=== PATIENT | female | born 1970 | race Caucasian/White ===

== ENCOUNTER 2017-02-17 15:19 | Emergency (ER) | payer OTHER ==
[~2017-02-17] VITALS: Ht 157.4 cm; Wt 68.0 kg
[~2017-02-17 15:19] MED LIST: ALBUTEROL0.09 MG/A2 IH; AMOXICILLIN500 MG PO; ANAPROX DS550 MG PO; ATARAX25 MG PO; ATIVAN1 MG PO; CARAFATE1 GM PO; CYCLOBENZAPRINE10 MG PO; DARVOCET N 1001 TAB PO; DAYPRO600 M1 PO; FLEXERIL10 MG PO; HYDROCODONE BIT1 T11 PO; IBU-6600 MG PO; IBU800 MG PO; MEDROL DOSEPAK4 MG PO; MOTRIN800 MG PO; NAPROSYN500 MG PO; NKHM; PERCOCET 325 MG1 TA2 PO; PHENERGAN25 M1 PO; PREDNISONE50 MG PO; PROTONIX40 MG PO; SEPTRA DS 800 M1 TAB PO; TRAMADOL HCL50 MG PO; ULTRAM50 MG PO; ZITHROMAX Z PA250 MG PO
[2017-02-17 15:24] VITALS: BP 124/83
[2017-02-17] MEDS ORDERED: ROBAXIN500 M1 PO (15:25)
[2017-02-17] MEDS ORDERED: VOLTAREN50 M1 PO (15:27)
[2017-02-17] MEDS ORDERED: PREDNISONE10 MG PO (17:50)
== END 2017-02-17 18:00 | disposition home or self-care (01) ==
LOC: ED 15:19
DX: S43.402A Unspecified sprain of left shoulder joint, initial encounter (principal); S13.9XXA Sprain of joints and ligaments of unspecified parts of neck, initial encounter; Z88.6 Allergy status to analgesic agent; X58.XXXA Exposure to other specified factors, initial encounter; Y93.9 Activity, unspecified; Y92.9 Unspecified place or not applicable; Y99.9 Unspecified external cause status

== ENCOUNTER 2017-03-03 21:59 | Emergency (ER) | payer OTHER ==
[~2017-03-03] VITALS: Ht 157.4 cm; Wt 68.0 kg
[~2017-03-03 21:59] MED LIST changes: +PREDNISONE10 MG PO; +ROBAXIN500 M1 PO; +VOLTAREN50 M1 PO
[2017-03-03 22:07] VITALS: BP 123/79
[2017-03-03] MEDS ORDERED: BACLOFEN20 M1 PO (22:09)
== END 2017-03-03 23:47 | disposition home or self-care (01) ==
LOC: ED 21:59
DX: S39.012A Strain of muscle, fascia and tendon of lower back, initial encounter (principal); M62.838 Other muscle spasm; Z88.6 Allergy status to analgesic agent; X50.1XXA Overexertion from prolonged static or awkward postures, initial encounter; Y93.E1 Activity, personal bathing and showering; Y92.89 Other specified places as the place of occurrence of the external cause; Y99.8 Other external cause status

== ENCOUNTER 2017-08-29 14:20 | Emergency (ER) | payer OTHER ==
[~2017-08-29] VITALS: Ht 157.4 cm; Wt 63.5 kg
[~2017-08-29 14:20] MED LIST changes: +BACLOFEN20 M1 PO
[2017-08-29 14:27] VITALS: BP 127/96
[2017-08-29] MEDS ORDERED: CYCLOBENZAPRINE5 M3 PO (14:28)
[2017-08-29 15:00] LABS: BASO # 0.1 10*3/uL (0.0-0.1); BASO % 1.3 % (0.0-1.0); EOS # 0.2 10*3/uL (0.0-0.4); EOS % 3.8 % (1.0-4.0); HEMATOCRIT 39.9 % (37.0-47.0); HEMOGLOBIN 13.4 g/dl (12.0-16.0); LYMPH % 47.3 % (27.0-41.0); MEAN CELL VOLUME 85.8 fl (81.0-99.0); MEAN CORPUSCULAR HGB 28.8 pg (27.0-31.0); MEAN CORPUSCULAR HGB CONC 33.6 g/dl (33.0-37.0); MEAN PLATELET VOLUME 10.6 fl (9.6-12.3); MONO # 0.4 10*3/uL (0.1-1.0); MONO % 6.9 % (3.0-9.0); NEUT # 2.6 10*3/uL (2.3-7.9); NEUT % 40.5 % (47.0-73.0); PLATELET COUNT AUTOMATED 264 10*3/uL (130-400); RED BLOOD COUNT 4.65 10*6/uL (4.10-5.10); WHITE BLOOD COUNT 6.3 10*3/uL (4.8-10.8)
[2017-08-29 15:15] LABS: ALBUMIN 3.9 gm/dl (3.1-4.5); ALKALINE PHOSPHATASE 73 U/L (45-117); BUN 10 mg/dl (7-24); CHLORIDE 106 mmol/L (98-107); CREATININE 0.75 mg/dL (0.55-1.02); POTASSIUM 4.3 mmol/L (3.5-5.1); SGOT/AST 20 IU/L (3-35); SGPT/ALT 58 U/L (12-78); SODIUM 139 mmol/L (136-145); TOTAL PROTEIN 7.8 gm/dL (6.4-8.2)
[2017-08-29 15:17] LABS: TROPONIN I < 0.015 ng/ml (<0.045)
[2017-08-29] MEDS ORDERED: PREDNISONE50 MG PO (15:22)
== END 2017-08-29 15:59 | disposition home or self-care (01) ==
LOC: ED 14:20
PROVIDERS: Student in an Organized Health Care Education/Training Program
DX: M54.5 Low back pain (principal); G89.29 Other chronic pain; Z90.49 Acquired absence of other specified parts of digestive tract; Z88.6 Allergy status to analgesic agent

== ENCOUNTER → 2017-09-11 | Outpatient (CLI) | payer OTHER ==
[~2017-09-11] MED LIST changes: +CYCLOBENZAPRINE5 M3 PO
== END | disposition home or self-care (01) ==
LOC: MRI 13:00
DX: M51.36 Other intervertebral disc degeneration, lumbar region (principal); M51.37 Other intervertebral disc degeneration, lumbosacral region; M47.896 Other spondylosis, lumbar region; M25.78 Osteophyte, vertebrae; M54.41 Lumbago with sciatica, right side; R29.890 Loss of height; Z91.81 History of falling

== ENCOUNTER → 2017-10-15 | Outpatient (CLI) | payer OTHER | END | disposition home or self-care (01) | LOC: MAMMO 14:20 | DX: Z12.31 Encounter for screening mammogram for malignant neoplasm of breast (principal) ==

== ENCOUNTER 2017-11-21 14:51 | Inpatient (IN) | payer OTHER ==
[~2017-11-21] VITALS: Ht 157.5 cm; Wt 92.1 kg
[2017-11-21 14:51] VITALS: BP 114/66
[2017-11-21] MEDS ORDERED: NEURONTIN600 MG PO (15:06)
[2017-11-21] MEDS ORDERED: CYCLOBENZAPRINE10 MG PO (15:06)
[2017-11-21 15:13] LABS: BASO # 0.1 10*3/uL (0.0-0.1); BASO % 1.8 % (0.0-1.0); EOS # 0.3 10*3/uL (0.0-0.4); EOS % 5.5 % (1.0-4.0); HEMATOCRIT 39.7 % (37.0-47.0); HEMOGLOBIN 13.2 g/dl (12.0-16.0); LYMPH # 2.8 10*3/uL (1.3-4.4); LYMPH % 55.7 % (27.0-41.0); MEAN CELL VOLUME 86.1 fl (81.0-99.0); MEAN CORPUSCULAR HGB 28.6 pg (27.0-31.0); MEAN CORPUSCULAR HGB CONC 33.2 g/dl (33.0-37.0); MEAN PLATELET VOLUME 10.4 fl (9.6-12.3); MONO # 0.4 10*3/uL (0.1-1.0); MONO % 7.5 % (3.0-9.0); NEUT # 1.5 10*3/uL (2.3-7.9); NEUT % 29.3 % (47.0-73.0); PLATELET COUNT AUTOMATED 239 10*3/uL (130-400); RED BLOOD COUNT 4.61 10*6/uL (4.10-5.10); RED CELL DISTRI WIDTH 12.9 % (0-14.5); WHITE BLOOD COUNT 5.1 10*3/uL (4.8-10.8)
[2017-11-21 15:22] VITALS: BP 107/76
[2017-11-21 15:22] LABS: ACT PARTIAL THROMBO TIME 25.7 SECONDS (20.8-31.5); INTERNATIONAL NORM RATIO 0.9 (2.0-3.5)
[2017-11-21 15:30] LABS: ALKALINE PHOSPHATASE 73 U/L (45-117); BUN 10 mg/dl (7-24); CHLORIDE 105 mmol/L (98-107); CREATININE 0.87 mg/dL (0.55-1.02); POTASSIUM 3.5 mmol/L (3.5-5.1); SGOT/AST 21 IU/L (3-35); SGPT/ALT 47 U/L (12-78); SODIUM 139 mmol/L (136-145); TOTAL PROTEIN 7.5 gm/dL (6.4-8.2)
[2017-11-21 15:31] LABS: TROPONIN I < 0.015 ng/ml (<0.045)
[2017-11-21 15:59] VITALS: BP 98/63
[2017-11-21 16:40] VITALS: BP 103/67
[2017-11-21] MEDS ORDERED: CYMBALTA20 M1 PO (16:46)
[2017-11-21 20:00] VITALS: BP 117/76
[2017-11-22] VITALS: BP 135/44
[2017-11-22 06:11] LABS: BASO # 0.1 10*3/uL (0.0-0.1); BASO % 1.5 % (0.0-1.0); EOS # 0.3 10*3/uL (0.0-0.4); EOS % 5.4 % (1.0-4.0); HEMOGLOBIN 13.1 g/dl (12.0-16.0); LYMPH # 3.4 10*3/uL (1.3-4.4); LYMPH % 55.5 % (27.0-41.0); MEAN CELL VOLUME 88.9 fl (81.0-99.0); MEAN CORPUSCULAR HGB 28.4 pg (27.0-31.0); MONO # 0.5 10*3/uL (0.1-1.0); NEUT # 1.8 10*3/uL (2.3-7.9); NEUT % 29.4 % (47.0-73.0); PLATELET COUNT AUTOMATED 246 10*3/uL (130-400); RED BLOOD COUNT 4.61 10*6/uL (4.10-5.10); WHITE BLOOD COUNT 6.2 10*3/uL (4.8-10.8)
[2017-11-22 06:46] LABS: BUN 10 mg/dl (7-24); CHLORIDE 107 mmol/L (98-107); CHOLESTEROL 137 mg/dL (<200); CREATININE 0.82 mg/dL (0.55-1.02); PHOSPHOROUS 3.7 mg/dL (2.5-4.9); POTASSIUM 3.9 mmol/L (3.5-5.1); SODIUM 140 mmol/L (136-145); TRIGLYCERIDES 239 mg/dl (<150); VLDL CHOLESTEROL 48 mg/dL (6-40)
[2017-11-22 06:56] LABS: HDL CHOLESTEROL 26 mg/dl (40-60); LDL CHOLESTEROL 63 mg/dL (9-159)
[2017-11-22 07:12] LABS: VITAMIN D, 25-HYDROXY 20.9 ng/mL (30-100)
[2017-11-22 08:00] VITALS: BP 108/66
[2017-11-22 12:00] VITALS: BP 99/62
[2017-11-22] MEDS ORDERED: VITAMIN D-32000 UNIT PO (13:34)
== END 2017-11-22 15:00 | disposition home or self-care (01) | DRG 206 ==
LOC: ED 14:51 → 5E 15:47 → EDHOLD 15:47 → 5E 16:05
PROVIDERS: Internal Medicine; Nurse Practitioner Family
DX: M94.0 Chondrocostal junction syndrome [Tietze] (principal); E83.41 Hypermagnesemia; F33.9 Major depressive disorder, recurrent, unspecified; R00.0 Tachycardia, unspecified; R73.9 Hyperglycemia, unspecified; R07.82 Intercostal pain; E55.9 Vitamin D deficiency, unspecified; Z72.89 Other problems related to lifestyle; Z88.6 Allergy status to analgesic agent; Z90.49 Acquired absence of other specified parts of digestive tract; Z80.8 Family history of malignant neoplasm of other organs or systems; Z79.899 Other long term (current) drug therapy

== ENCOUNTER 2018-02-19 22:07 | Emergency (ER) | payer OTHER ==
[~2018-02-19] VITALS: Ht 157.4 cm; Wt 77.1 kg
[~2018-02-19 22:07] MED LIST changes: +CYMBALTA20 M1 PO; +NEURONTIN600 MG PO; +VITAMIN D-32000 UNIT PO
[2018-02-19 22:09] VITALS: BP 114/78
[2018-02-19] MEDS ORDERED: Motrin,Rufen800 MG PO (23:20)
== END 2018-02-19 23:26 | disposition home or self-care (01) ==
LOC: ED 22:07
DX: M77.9 Enthesopathy, unspecified (principal); Z88.6 Allergy status to analgesic agent

== ENCOUNTER 2018-05-11 19:57 | Emergency (ER) | payer OTHER ==
[~2018-05-11] VITALS: Ht 157.4 cm; Wt 72.6 kg
[~2018-05-11 19:57] MED LIST changes: +Motrin,Rufen800 MG PO
[2018-05-11 20:40] LABS: BASO # 0.1 10*3/uL (0.0-0.1); BASO % 0.9 % (0.0-1.0); EOS # 0.3 10*3/uL (0.0-0.4); EOS % 3.5 % (1.0-4.0); HEMATOCRIT 40.3 % (37.0-47.0); HEMOGLOBIN 13.2 g/dl (12.0-16.0); LYMPH # 3.3 10*3/uL (1.3-4.4); LYMPH % 42.3 % (27.0-41.0); MEAN CELL VOLUME 86.5 fl (81.0-99.0); MEAN CORPUSCULAR HGB 28.3 pg (27.0-31.0); MEAN CORPUSCULAR HGB CONC 32.8 g/dl (33.0-37.0); MEAN PLATELET VOLUME 10.8 fl (9.6-12.3); MONO # 0.5 10*3/uL (0.1-1.0); MONO % 6.2 % (3.0-9.0); NEUT # 3.6 10*3/uL (2.3-7.9); PLATELET COUNT AUTOMATED 269 10*3/uL (130-400); RED BLOOD COUNT 4.66 10*6/uL (4.10-5.10); RED CELL DISTRI WIDTH 13.2 % (0-14.5); WHITE BLOOD COUNT 7.8 10*3/uL (4.8-10.8)
[2018-05-11 20:48] LABS: BILIRUBIN NEGATIVE (NEGATIVE); BLOOD TRACE-INTACT (NEGATIVE); CLARITY CLEAR (CLEAR); COLOR YELLOW (YELLOW); GLUCOSE NEGATIVE (NEGATIVE); KETONE NEGATIVE (NEGATIVE); LEUKO ESTERASE NEGATIVE (NEGATIVE); NITRITE NEGATIVE (NEGATIVE); UROBILINOGEN 0.2 E.U./dl (0.2-1.0)
[2018-05-11 20:54] LABS: BACTERIA 1+
[2018-05-11 20:55] LABS: WBC 0-2 wbc/hpf (0-5)
[2018-05-11 20:55] LABS: ALBUMIN 3.9 gm/dl (3.1-4.5); ALKALINE PHOSPHATASE 75 U/L (45-117); BUN 12 mg/dl (7-24); CHLORIDE 103 mmol/L (98-107); CREATININE 0.89 mg/dL (0.55-1.02); POTASSIUM 3.9 mmol/L (3.5-5.1); SGOT/AST 24 IU/L (3-35); SGPT/ALT 58 U/L (12-78); SODIUM 139 mmol/L (136-145); TOTAL PROTEIN 7.7 gm/dL (6.4-8.2)
[2018-05-11 22:11] VITALS: BP 104/60
[2018-05-11] MEDS ORDERED: CVS TUSSIN CF118 M2 PO (22:27)
== END 2018-05-11 22:30 | disposition home or self-care (01) ==
LOC: ED 19:57
PROVIDERS: Nurse Practitioner
DX: B34.9 Viral infection, unspecified (principal); R53.81 Other malaise; Z88.6 Allergy status to analgesic agent

== ENCOUNTER 2018-06-03 17:03 | Emergency (ER) | payer OTHER ==
[~2018-06-03] VITALS: Ht 157.4 cm; Wt 77.1 kg
--- NOTE | ~2018-06-03 | EKG ---
[place], [place] ELECTROCARDIOGRAM REPORT NAME: ROSMERY HASTINGS UNIT #: [id number] ROOM: DOCTOR: EPIPHANY DRAFT REPORT BIRTHDATE: [birth year] [facility] Test Date: 2018-06-03 Test Time: 17:45:06 Pat Name: ROSMERY HASTINGS Department: ER Room: 13 Gender: F Shift Manager: EKG.AR : 1970 Requested By: NERY CABRERA PA-C Order Number: [id number] Reading MD: Ana Saucedo MD Measurements Intervals [place] Rate: 89 P: 20 [place]: 165 QRS: 18 QRSD: 84 T: 27 QT: 361 QTc: 440 Interpretive Statements Sinus rhythm Low voltage, precordial leads Electronically Signed On 06-07-2018 7:10:17 PST by Ana Saucedo MD CM:EKGRPT:ELECTROCARDIOGRAM REPORT [id number] NERY CABRERA PA-C EPIPHANY DRAFT REPORT NERY CABRERA PA-C
[~2018-06-03 17:03] MED LIST changes: +CVS TUSSIN CF118 M2 PO
[2018-06-03 17:04] VITALS: BP 115/71
[2018-06-03 17:51] LABS: BILIRUBIN NEGATIVE (NEGATIVE); BLOOD NEGATIVE (NEGATIVE); CLARITY CLEAR (CLEAR); COLOR YELLOW (YELLOW); GLUCOSE NEGATIVE (NEGATIVE); KETONE NEGATIVE (NEGATIVE); LEUKO ESTERASE NEGATIVE (NEGATIVE); NITRITE NEGATIVE (NEGATIVE); SPECIFIC GRAVITY <= 1.005 (1.005-1.030); UROBILINOGEN 0.2 E.U./dl (0.2-1.0)
[2018-06-03 17:54] LABS: BASO # 0.1 10*3/uL (0.0-0.1); BASO % 1.4 % (0.0-1.0); EOS # 0.3 10*3/uL (0.0-0.4); EOS % 3.8 % (1.0-4.0); HEMATOCRIT 42.6 % (37.0-47.0); LYMPH # 3.3 10*3/uL (1.3-4.4); LYMPH % 38.8 % (27.0-41.0); MEAN CELL VOLUME 86.4 fl (81.0-99.0); MEAN CORPUSCULAR HGB 28.4 pg (27.0-31.0); MEAN CORPUSCULAR HGB CONC 32.9 g/dl (33.0-37.0); MEAN PLATELET VOLUME 10.8 fl (9.6-12.3); MONO # 0.5 10*3/uL (0.1-1.0); MONO % 6.1 % (3.0-9.0); NEUT # 4.2 10*3/uL (2.3-7.9); NEUT % 49.8 % (47.0-73.0); PLATELET COUNT AUTOMATED 292 10*3/uL (130-400); RED BLOOD COUNT 4.93 10*6/uL (4.10-5.10); WHITE BLOOD COUNT 8.5 10*3/uL (4.8-10.8)
[2018-06-03 18:07] LABS: ALBUMIN 3.9 gm/dl (3.1-4.5); ALKALINE PHOSPHATASE 75 U/L (45-117); BUN 5 mg/dl (7-24); CHLORIDE 106 mmol/L (98-107); LIPASE 149 U/L (73-393); POTASSIUM 3.9 mmol/L (3.5-5.1); SGOT/AST 26 IU/L (3-35); SGPT/ALT 55 U/L (12-78); SODIUM 140 mmol/L (136-145)
[2018-06-03 18:09] LABS: BACTERIA 2+
[2018-06-03] MEDS ORDERED: TESSALON PERLE100 M1 PO (18:24)
[2018-06-03] MEDS ORDERED: ZOFRAN ODT4 MG SL (18:24)
== END 2018-06-03 18:40 | disposition home or self-care (01) ==
LOC: ED 17:03
PROVIDERS: Physician Assistant
DX: B34.9 Viral infection, unspecified (principal); R07.89 Other chest pain; Z88.6 Allergy status to analgesic agent

== ENCOUNTER 2018-06-22 13:48 | Emergency (ER) | payer OTHER ==
[~2018-06-22] VITALS: Ht 157.4 cm; Wt 68.0 kg
[~2018-06-22 13:48] MED LIST changes: +TESSALON PERLE100 M1 PO; +ZOFRAN ODT4 MG SL
== END 2018-06-22 15:25 | disposition home or self-care (01) ==
LOC: ED 13:48
DX: S81.812A Laceration without foreign body, left lower leg, initial encounter (principal); Z88.6 Allergy status to analgesic agent; Z79.899 Other long term (current) drug therapy; Z90.49 Acquired absence of other specified parts of digestive tract; W25.XXXA Contact with sharp glass, initial encounter; Y93.89 Activity, other specified; Y92.89 Other specified places as the place of occurrence of the external cause; Y99.8 Other external cause status

== ENCOUNTER 2018-08-09 23:05 | Emergency (ER) | payer OTHER ==
[~2018-08-09] VITALS: Ht 157.4 cm; Wt 72.6 kg
[2018-08-09] MEDS ORDERED: FLONASE ALLERG9.9 ML NAS (23:42)
[2018-08-10] MEDS ORDERED: AUGMENTIN 875-875 MG PO (00:15)
[2018-08-10 00:38] VITALS: BP 95/57
== END 2018-08-10 00:17 | disposition home or self-care (01) ==
LOC: ED 23:05
DX: J32.0 Chronic maxillary sinusitis (principal); M54.2 Cervicalgia; R11.10 Vomiting, unspecified; H53.149 Visual discomfort, unspecified; Z88.6 Allergy status to analgesic agent; Z79.899 Other long term (current) drug therapy; Z90.49 Acquired absence of other specified parts of digestive tract

== ENCOUNTER 2019-03-08 18:38 | Emergency (ER) | payer OTHER ==
[~2019-03-08] VITALS: Ht 157.4 cm; Wt 72.6 kg
[2019-03-08 18:38] VITALS: BP 113/76
[~2019-03-08 18:38] MED LIST changes: +AUGMENTIN 875-875 MG PO; +ESCITALOPRAM OX20 MG PO; +FLONASE ALLERG9.9 ML NAS; +MELOXICAM15 MG PO; +OMEPRAZOLE40 MG PO
[2019-03-08] MEDS ORDERED: ROBAXIN-750750 MG PO (20:34)
== END 2019-03-08 20:47 | disposition home or self-care (01) ==
LOC: ED 18:38
DX: S39.012A Strain of muscle, fascia and tendon of lower back, initial encounter (principal); S93.402A Sprain of unspecified ligament of left ankle, initial encounter; Z88.6 Allergy status to analgesic agent; Z79.899 Other long term (current) drug therapy; Z90.49 Acquired absence of other specified parts of digestive tract; W01.0XXA Fall on same level from slipping, tripping and stumbling without subsequent striking against object, initial encounter; Y93.01 Activity, walking, marching and hiking; Y92.512 Supermarket, store or market as the place of occurrence of the external cause; Y99.8 Other external cause status

== ENCOUNTER 2019-06-21 18:54 | Emergency (ER) | payer OTHER ==
[~2019-06-21] VITALS: Ht 157.4 cm; Wt 68.0 kg
[2019-06-21 18:54] VITALS: BP 126/76
[~2019-06-21 18:54] MED LIST changes: +ROBAXIN-750750 MG PO
[2019-06-21] MEDS ORDERED: MEDROL DOSEPAK4 MG PO (21:41)
[2019-06-21] MEDS ORDERED: CYCLOBENZAPRINE10 MG PO (21:46)
== END 2019-06-21 22:05 | disposition home or self-care (01) ==
LOC: ED 18:54
DX: M51.36 Other intervertebral disc degeneration, lumbar region (principal); M54.41 Lumbago with sciatica, right side; M54.6 Pain in thoracic spine; Z88.6 Allergy status to analgesic agent

== ENCOUNTER → 2019-08-15 | Outpatient (CLI) | payer OTHER ==
[2019-08-15 15:14] LABS: ALBUMIN 3.9 gm/dl (3.1-4.5); ALKALINE PHOSPHATASE 74 U/L (45-117); BILIRUBIN, DIRECT < 0.1 mg/dL (0.0-0.2); CHOLESTEROL 131 mg/dL (<200); GAMMA GLUTAMYL TRANSPEPTIDASE 25 U/L (5-55); HDL CHOLESTEROL 26 mg/dl (40-60); LDL CHOLESTEROL 48 mg/dL (9-159); SGOT/AST 17 IU/L (3-35); SGPT/ALT 44 U/L (12-78); TOTAL PROTEIN 7.3 gm/dL (6.4-8.2); TRIGLYCERIDES 284 mg/dl (<150); URIC ACID 6.1 mg/dL (2.6-6.0); VLDL CHOLESTEROL 57 mg/dL (6-40)
[2019-08-16 09:03] LABS: AFP TUMOR MARKER 002253 3.7 ng/mL (0.0-8.3); HEPATITIS B SURFACE AG Negative (Negative); HEPATITIS C VIRUS ANTIBODY <0.1 s/co (0.0-0.9)
== END | disposition home or self-care (01) ==
LOC: LAB 14:23
PROVIDERS: Family Medicine
DX: E78.5 Hyperlipidemia, unspecified (principal); R53.83 Other fatigue; R74.8 Abnormal levels of other serum enzymes; E55.9 Vitamin D deficiency, unspecified; R79.89 Other specified abnormal findings of blood chemistry

== ENCOUNTER 2020-03-18 12:20 | Emergency (ER) | payer OTHER ==
[~2020-03-18] VITALS: Ht 157.4 cm; Wt 77.1 kg
[2020-03-18 12:28] VITALS: BP 121/72
[2020-03-18] MEDS ORDERED: ROBAXIN-750750 MG PO (13:41)
[2020-03-18] MEDS ORDERED: PREDNISONE20 M1 PO (13:41)
== END 2020-03-18 13:46 | disposition home or self-care (01) ==
LOC: ED 12:20
DX: M54.42 Lumbago with sciatica, left side (principal)

== ENCOUNTER 2020-06-28 14:58 | Emergency (ER) | payer OTHER ==
[~2020-06-28] VITALS: Ht 157.4 cm; Wt 76.2 kg
[~2020-06-28 14:58] MED LIST changes: +PREDNISONE20 M1 PO
[2020-06-28 15:11] VITALS: BP 127/74
[2020-06-28] MEDS ORDERED: NAPROSYN500 MG PO (18:45)
== END 2020-06-28 18:49 | disposition home or self-care (01) ==
LOC: ED 14:58
DX: M79.602 Pain in left arm (principal); M79.642 Pain in left hand; Z79.899 Other long term (current) drug therapy

== ENCOUNTER 2021-02-26 17:58 | Emergency (ER) | payer OTHER ==
[~2021-02-26] VITALS: Ht 157.4 cm; Wt 72.6 kg
[2021-02-26 18:07] VITALS: BP 126/71
[2021-02-26] MEDS ORDERED: NAPROSYN500 MG PO (21:15)
[2021-02-26] MEDS ORDERED: HYDROCODONE-AC1 EAC1 PO ×2 (21:15→21:16)
[2021-02-26] MEDS ORDERED: CYCLOBENZAPRINE10 MG PO (21:15)
== END 2021-02-26 21:24 | disposition home or self-care (01) ==
LOC: ED 17:58
DX: M54.41 Lumbago with sciatica, right side (principal); Z79.899 Other long term (current) drug therapy; Z90.49 Acquired absence of other specified parts of digestive tract

== ENCOUNTER → 2021-03-19 | Outpatient (CLI) | payer OTHER ==
[~2021-03-19] MED LIST changes: +HYDROCODONE-AC1 EAC1 PO
== END | disposition home or self-care (01) ==
LOC: MAMMO 15:00 → LAB 16:01
PROVIDERS: ATTEND Family Medicine
DX: Z12.31 Encounter for screening mammogram for malignant neoplasm of breast (principal); R79.89 Other specified abnormal findings of blood chemistry; R53.83 Other fatigue; E78.5 Hyperlipidemia, unspecified; E55.9 Vitamin D deficiency, unspecified

== ENCOUNTER → 2021-03-20 | Outpatient (CLI) | payer OTHER ==
[2021-03-20 14:40] LABS: BASO # 0.1 10*3/uL (0.0-0.1); BASO % 1.4 % (0.0-1.0); EOS # 0.2 10*3/uL (0.0-0.4); EOS % 3.6 % (1.0-4.0); HEMATOCRIT 40.5 % (37.0-47.0); LYMPH # 2.9 10*3/uL (1.3-4.4); LYMPH % 43.6 % (27.0-41.0); MEAN CELL VOLUME 83.3 fl (81.0-99.0); MEAN CORPUSCULAR HGB 28.6 pg (27.0-31.0); MEAN CORPUSCULAR HGB CONC 34.3 g/dl (33.0-37.0); MEAN PLATELET VOLUME 10.3 fl (9.6-12.3); MONO # 0.4 10*3/uL (0.1-1.0); MONO % 6.1 % (3.0-9.0); NEUT % 45.1 % (47.0-73.0); PLATELET COUNT AUTOMATED 340 10*3/uL (130-400); RED BLOOD COUNT 4.86 10*6/uL (4.10-5.10); RETICULOCYTE % 2.12 % (0.50-2.50); WHITE BLOOD COUNT 6.6 10*3/uL (4.8-10.8)
[2021-03-20 14:57] LABS: ALBUMIN 4.1 gm/dl (3.1-4.5); ALKALINE PHOSPHATASE 79 U/L (45-117); BUN 11 mg/dl (7-24); CHLORIDE 108 mmol/L (98-107); CHOLESTEROL 147 mg/dL (<200); CREATININE 0.81 mg/dL (0.55-1.02); GAMMA GLUTAMYL TRANSPEPTIDASE 45 U/L (5-55); IRON 52 ug/dL (50-170); LDL CHOLESTEROL 57 mg/dL (9-159); POTASSIUM 3.9 mmol/L (3.5-5.1); SGOT/AST 16 IU/L (3-35); SGPT/ALT 51 U/L (12-78); SODIUM 140 mmol/L (136-145); TOTAL IRON BINDING CAPACITY 343 ug/dl (250-450); TOTAL PROTEIN 7.9 gm/dL (6.4-8.2); TRIGLYCERIDES 325 mg/dl (<150)
[2021-03-20 15:05] LABS: BILIRUBIN Negative (Negative); BLOOD 2+ (Negative); CLARITY Clear (Clear); COLOR Yellow (Yellow); GLUCOSE Negative (Negative); KETONE Trace (Negative); LEUKO ESTERASE Trace (Negative); NITRITE Negative (Negative); PH 5.5 (4.5-8.0); SPECIFIC GRAVITY 1.025 (1.001-1.030)
[2021-03-20 15:23] LABS: FERRITIN 53.1 ng/mL (10.0-291.0)
[2021-03-20 15:38] LABS: BACTERIA TRACE
== END | disposition home or self-care (01) ==
LOC: MRI 00:15
PROVIDERS: Family Medicine; ATTEND Student in an Organized Health Care Education/Training Program
DX: M51.16 Intervertebral disc disorders with radiculopathy, lumbar region (principal); M47.816 Spondylosis without myelopathy or radiculopathy, lumbar region; M51.26 Other intervertebral disc displacement, lumbar region

== ENCOUNTER 2021-10-08 20:06 | Emergency (ER) | payer OTHER ==
[~2021-10-08] VITALS: Ht 157.4 cm; Wt 72.6 kg
[2021-10-08 20:11] VITALS: BP 125/74
[2021-10-08 20:43] LABS: BASO # 0.1 10*3/uL (0.0-0.1); BASO % 1.3 % (0.0-1.0); EOS # 0.3 10*3/uL (0.0-0.4); EOS % 4.2 % (1.0-4.0); HEMATOCRIT 40.3 % (37.0-47.0); LYMPH # 3.5 10*3/uL (1.3-4.4); LYMPH % 49.2 % (27.0-41.0); MEAN CELL VOLUME 84.5 fl (81.0-99.0); MEAN CORPUSCULAR HGB 27.9 pg (27.0-31.0); MEAN PLATELET VOLUME 10.3 fl (9.6-12.3); MONO # 0.5 10*3/uL (0.1-1.0); NEUT # 2.7 10*3/uL (2.3-7.9); NEUT % 38.2 % (47.0-73.0); PLATELET COUNT AUTOMATED 315 10*3/uL (130-400); RED BLOOD COUNT 4.77 10*6/uL (4.10-5.10); RED CELL DISTRI WIDTH 12.2 % (0-14.5); WHITE BLOOD COUNT 7.1 10*3/uL (4.8-10.8)
[2021-10-08 20:43] LABS: BILIRUBIN Negative (Negative); BLOOD Negative (Negative); CLARITY Cloudy (Clear); COLOR Yellow (Yellow); GLUCOSE Negative (Negative); KETONE Negative (Negative); LEUKO ESTERASE Negative (Negative); NITRITE Negative (Negative); SPECIFIC GRAVITY 1.025 (1.001-1.030)
[2021-10-08 21:00] LABS: BACTERIA 3+
[2021-10-08 21:13] LABS: ALKALINE PHOSPHATASE 100 U/L (45-117); BUN 14 mg/dl (7-24); CHLORIDE 107 mmol/L (98-107); CREATININE 0.81 mg/dL (0.55-1.02); LIPASE 194 U/L (73-393); POTASSIUM 4.1 mmol/L (3.5-5.1); SGOT/AST 34 IU/L (3-35); SGPT/ALT 75 U/L (12-78); SODIUM 142 mmol/L (136-145); TOTAL PROTEIN 7.5 gm/dL (6.4-8.2)
[2021-10-08] MEDS ORDERED: ZOFRAN4 MG PO (21:40)
[2021-10-08] MEDS ORDERED: PEPCID20 MG PO (21:40)
== END 2021-10-08 21:42 | disposition home or self-care (01) ==
LOC: ED 20:06
PROVIDERS: Physician Assistant
DX: R10.9 Unspecified abdominal pain (principal); R11.2 Nausea with vomiting, unspecified; Z90.49 Acquired absence of other specified parts of digestive tract

== ENCOUNTER → 2022-02-19 | Outpatient (CLI) | payer OTHER ==
[~2022-02-19] MED LIST changes: +PEPCID20 MG PO; +ZOFRAN4 MG PO
[2022-02-19 16:32] LABS: BASO # 0.1 10*3/uL (0.0-0.1); BASO % 1.7 % (0.0-1.0); EOS # 0.3 10*3/uL (0.0-0.4); EOS % 4.5 % (1.0-4.0); HEMATOCRIT 41.9 % (37.0-47.0); LYMPH # 2.8 10*3/uL (1.3-4.4); LYMPH % 47.1 % (27.0-41.0); MEAN CORPUSCULAR HGB 27.5 pg (27.0-31.0); MEAN CORPUSCULAR HGB CONC 32.7 g/dl (33.0-37.0); MEAN PLATELET VOLUME 10.6 fl (9.6-12.3); MONO # 0.4 10*3/uL (0.1-1.0); NEUT # 2.4 10*3/uL (2.3-7.9); NEUT % 39.4 % (47.0-73.0); PLATELET COUNT AUTOMATED 297 10*3/uL (130-400); RED BLOOD COUNT 4.99 10*6/uL (4.10-5.10); RED CELL DISTRI WIDTH 12.6 % (0-14.5); RETICULOCYTE % 1.98 % (0.50-2.50)
[2022-02-19 16:34] LABS: BILIRUBIN Negative (Negative); BLOOD Negative (Negative); CLARITY Clear (Clear); COLOR Yellow (Yellow); GLUCOSE Negative (Negative); KETONE Negative (Negative); LEUKO ESTERASE Negative (Negative); NITRITE Negative (Negative)
[2022-02-19 16:49] LABS: ALKALINE PHOSPHATASE 91 U/L (45-117); BUN 11 mg/dl (7-24); CHLORIDE 109 mmol/L (98-107); CHOLESTEROL 160 mg/dL (<200); CREATININE 0.99 mg/dL (0.55-1.02); GAMMA GLUTAMYL TRANSPEPTIDASE 37 U/L (5-55); IRON 53 ug/dL (50-170); LDL CHOLESTEROL 55 mg/dL (9-159); SGOT/AST 18 IU/L (3-35); SGPT/ALT 41 U/L (12-78); SODIUM 140 mmol/L (136-145); T3 UPTAKE 33 % (31-39); THYROXINE (T4) TOTAL 12.7 ug/dl (4.8-13.9); TOTAL PROTEIN 7.6 gm/dL (6.4-8.2); TRIGLYCERIDES 382 mg/dl (<150)
[2022-02-19 16:53] LABS: BACTERIA 2+; WBC 0-2 wbc/hpf (0-5)
[2022-02-19 16:57] LABS: B-hCG (QUALITATIVE) NEGATIVE (NEGATIVE)
[2022-02-19 16:59] LABS: BETA-HCG, QUANT < 1.0 mIU/mL (1-3)
[2022-02-20 08:08] LABS: DHEA SULFATE 60.7 ug/dL (41.2-243.7); FOLLICLE STIMULATING HORMONE 47.2 mIU/mL (.); LUTEINIZING HORMONE 29.7 mIU/mL (.); PROGESTERONE 0.1 ng/mL (.); PROLACTIN 13.6 ng/mL (4.8-23.3); SEX HORMONE BINDING GLOBULIN 30.6 nmol/L (24.6-122.0)
[2022-02-23 00:05] LABS: TESTOSTERONE FREE, (DIRECT) 0.7 pg/mL (0.0-4.2)
== END | disposition home or self-care (01) ==
LOC: LAB 15:54
PROVIDERS: ATTEND Family Medicine
DX: E78.5 Hyperlipidemia, unspecified (principal); R79.89 Other specified abnormal findings of blood chemistry; R53.83 Other fatigue; R74.8 Abnormal levels of other serum enzymes

== ENCOUNTER → 2022-03-07 | Outpatient (CLI) | payer OTHER | END | disposition home or self-care (01) | LOC: US 00:58 | PROVIDERS: ATTEND Family Medicine | DX: K76.0 Fatty (change of) liver, not elsewhere classified (principal); R10.84 Generalized abdominal pain; R10.2 Pelvic and perineal pain ==

== ENCOUNTER 2022-03-15 16:35 | Emergency (ER) | payer OTHER ==
[~2022-03-15] VITALS: Ht 157.4 cm; Wt 72.1 kg
[2022-03-15 16:43] VITALS: BP 110/68
[2022-03-15] MEDS ORDERED: IBUPROFEN600 MG PO (18:53)
== END 2022-03-15 19:16 | disposition home or self-care (01) ==
LOC: ED 16:35
DX: S60.221A Contusion of right hand, initial encounter (principal); Z90.49 Acquired absence of other specified parts of digestive tract; Z90.89 Acquired absence of other organs; W22.01XA Walked into wall, initial encounter; Y93.89 Activity, other specified; Y92.89 Other specified places as the place of occurrence of the external cause; Y99.8 Other external cause status

== ENCOUNTER 2022-08-14 17:14 | Emergency (ER) | payer OTHER ==
[~2022-08-14] VITALS: Wt 78.5 kg
[~2022-08-14 17:14] MED LIST changes: +IBUPROFEN600 MG PO
[2022-08-14 17:42] VITALS: BP 122/72
[2022-08-14] MEDS ORDERED: NAPROSYN500 MG PO (20:23)
== END 2022-08-14 20:36 | disposition home or self-care (01) ==
LOC: ED 17:14
DX: S83.91XA Sprain of unspecified site of right knee, initial encounter (principal); Z90.89 Acquired absence of other organs; Z90.49 Acquired absence of other specified parts of digestive tract; X58.XXXA Exposure to other specified factors, initial encounter; Y93.89 Activity, other specified; Y92.89 Other specified places as the place of occurrence of the external cause; Y99.8 Other external cause status

== ENCOUNTER 2022-10-29 17:57 | Emergency (ER) | payer OTHER ==
[~2022-10-29] VITALS: Ht 157.4 cm; Wt 77.1 kg
[2022-10-29 18:01] VITALS: BP 118/64
== END 2022-10-29 20:20 | disposition left against medical advice (07) ==
LOC: ED 17:57
DX: M25.561 Pain in right knee (principal); Z53.21 Procedure and treatment not carried out due to patient leaving prior to being seen by health care provider

== ENCOUNTER 2022-11-03 16:46 | Emergency (ER) | payer OTHER ==
[~2022-11-03] VITALS: Ht 157.4 cm; Wt 72.6 kg
[2022-11-03 17:12] VITALS: BP 107/72
== END 2022-11-03 19:43 | disposition home or self-care (01) ==
LOC: ED 16:46
DX: S76.911A Strain of unspecified muscles, fascia and tendons at thigh level, right thigh, initial encounter (principal); S80.01XA Contusion of right knee, initial encounter; F32.A Depression, unspecified; I95.9 Hypotension, unspecified; Z90.89 Acquired absence of other organs; Z90.49 Acquired absence of other specified parts of digestive tract; Z98.890 Other specified postprocedural states; W50.1XXA Accidental kick by another person, initial encounter; Y93.89 Activity, other specified; Y92.89 Other specified places as the place of occurrence of the external cause; Y99.8 Other external cause status

== ENCOUNTER → 2022-11-05 | Outpatient (CLI) | payer OTHER ==
[2022-11-05 13:15] LABS: BASO # 0.1 10*3/uL (0.0-0.1); BASO % 1.4 % (0.0-1.0); EOS # 0.2 10*3/uL (0.0-0.4); EOS % 4.1 % (1.0-4.0); HEMATOCRIT 40.8 % (37.0-47.0); LYMPH % 39.5 % (27.0-41.0); MEAN CELL VOLUME 85.7 fl (81.0-99.0); MEAN CORPUSCULAR HGB 28.2 pg (27.0-31.0); MEAN CORPUSCULAR HGB CONC 32.8 g/dl (33.0-37.0); MEAN PLATELET VOLUME 11.2 fl (9.6-12.3); MONO # 0.4 10*3/uL (0.1-1.0); MONO % 7.4 % (3.0-9.0); NEUT # 2.4 10*3/uL (2.3-7.9); NEUT % 47.4 % (47.0-73.0); PLATELET COUNT AUTOMATED 262 10*3/uL (130-400); RED BLOOD COUNT 4.76 10*6/uL (4.10-5.10); RED CELL DISTRI WIDTH 12.9 % (0-14.5); RETICULOCYTE % 1.91 % (0.50-2.50); WHITE BLOOD COUNT 5.1 10*3/uL (4.8-10.8)
[2022-11-05 13:30] LABS: BILIRUBIN Negative (Negative); BLOOD Negative (Negative); CLARITY Clear (Clear); COLOR Yellow (Yellow); GLUCOSE Negative (Negative); KETONE Negative (Negative); LEUKO ESTERASE 1+ (Negative); NITRITE Negative (Negative); SPECIFIC GRAVITY 1.025 (1.001-1.030)
[2022-11-05 13:44] LABS: EPITHELIAL CELLS 16-20; RBC 0-2 rbc/hpf (0-2)
[2022-11-05 13:56] LABS: ALKALINE PHOSPHATASE 76 U/L (46-116); BUN 10 mg/dl (9-23); CHLORIDE 108 mmol/L (98-107); CHOLESTEROL 151 mg/dL (<200); GAMMA GLUTAMYL TRANSPEPTIDASE 36 U/L (0-73); LDL CHOLESTEROL 58 mg/dL (9-159); POTASSIUM 4.1 mmol/L (3.4-5.1); SGPT/ALT 47 U/L (10-49); T3 UPTAKE 18.5 % (22.4-36.7); THYROXINE (T4) TOTAL 10.4 ug/dl (4.5-10.9); TOTAL PROTEIN 7.2 gm/dL (6.0-8.0); TRIGLYCERIDES 306 mg/dl (<150); URIC ACID 6.4 mg/dL (3.1-7.8)
[2022-11-05 15:39] LABS: VITAMIN D, 25-HYDROXY 21.2 ng/mL (30-100)
[2022-11-06 13:07] LABS: ANTI-DSDNA ANTIBODIES <1 IU/mL (0-9)
== END | disposition home or self-care (01) ==
LOC: LAB 12:52
PROVIDERS: ATTEND Family Medicine
DX: E78.5 Hyperlipidemia, unspecified (principal); R79.89 Other specified abnormal findings of blood chemistry; R53.83 Other fatigue; R74.8 Abnormal levels of other serum enzymes; E55.9 Vitamin D deficiency, unspecified

== ENCOUNTER → 2022-11-20 | Outpatient (CLI) | payer OTHER | END | disposition home or self-care (01) | LOC: MRI 10:43 | PROVIDERS: ATTEND Family Medicine | DX: S83.241D Other tear of medial meniscus, current injury, right knee, subsequent encounter (principal); S83.401D Sprain of unspecified collateral ligament of right knee, subsequent encounter; M25.461 Effusion, right knee; M71.21 Synovial cyst of popliteal space [Baker], right knee; R60.0 Localized edema; X58.XXXD Exposure to other specified factors, subsequent encounter ==

== ENCOUNTER 2023-01-14 17:03 | Emergency (ER) | payer OTHER ==
[~2023-01-14] VITALS: Wt 76.7 kg
[2023-01-14 17:34] VITALS: BP 120/52
[2023-01-14] MEDS ORDERED: Motrin,Rufen800 MG PO (18:04)
[2023-01-14] MEDS ORDERED: HYDROCODONE-AC1 EAC1 PO (18:04)
== END 2023-01-14 18:29 | disposition home or self-care (01) ==
LOC: ED 17:03
DX: S89.91XA Unspecified injury of right lower leg, initial encounter (principal); F32.A Depression, unspecified; I95.9 Hypotension, unspecified; Z90.89 Acquired absence of other organs; Z90.49 Acquired absence of other specified parts of digestive tract; X58.XXXA Exposure to other specified factors, initial encounter; Y93.89 Activity, other specified; Y92.89 Other specified places as the place of occurrence of the external cause; Y99.8 Other external cause status

== ENCOUNTER → 2023-03-26 | Day surgery (SDC) | payer OTHER ==
[2023-03-23 12:46] VITALS: BP 123/73
[2023-03-23 13:36] LABS: BUN 8 mg/dl (9-23); CHLORIDE 106 mmol/L (98-107); POTASSIUM 4.1 mmol/L (3.4-5.1)
[~2023-03-26] VITALS: Ht 157.4 cm; Wt 76.7 kg
[2023-03-26 08:15] VITALS: BP 112/63
[2023-03-26 10:10] VITALS: BP 116/59
[2023-03-26 10:25] VITALS: BP 111/66
[2023-03-26 10:40] VITALS: BP 113/70
[2023-03-26 10:55] VITALS: BP 109/73
[2023-03-26 11:07] VITALS: BP 116/68
== END ==
LOC: SDC 03-23 13:15
PROVIDERS: ATTEND Orthopaedic Surgery
DX: S83.241A Other tear of medial meniscus, current injury, right knee, initial encounter (principal); M17.11 Unilateral primary osteoarthritis, right knee; G43.909 Migraine, unspecified, not intractable, without status migrainosus; Z90.49 Acquired absence of other specified parts of digestive tract; Z90.89 Acquired absence of other organs; X58.XXXA Exposure to other specified factors, initial encounter; Y92.89 Other specified places as the place of occurrence of the external cause; Y93.89 Activity, other specified; Y99.8 Other external cause status

== ENCOUNTER 2023-04-28 11:44 | Emergency (ER) | payer OTHER ==
[~2023-04-28] VITALS: Ht 157.4 cm; Wt 72.6 kg
[2023-04-28 12:18] LABS: BASO # 0.1 10*3/uL (0.0-0.1); BASO % 0.9 % (0.0-1.0); EOS # 0.3 10*3/uL (0.0-0.4); EOS % 3.9 % (1.0-4.0); HEMATOCRIT 40.8 % (37.0-47.0); LYMPH # 2.6 10*3/uL (1.3-4.4); LYMPH % 41.1 % (27.0-41.0); MEAN CELL VOLUME 84.6 fl (81.0-99.0); MEAN CORPUSCULAR HGB CONC 33.1 g/dl (33.0-37.0); MEAN PLATELET VOLUME 10.9 fl (9.6-12.3); MONO # 0.5 10*3/uL (0.1-1.0); MONO % 7.4 % (3.0-9.0); NEUT % 46.5 % (47.0-73.0); PLATELET COUNT AUTOMATED 302 10*3/uL (130-400); RED BLOOD COUNT 4.82 10*6/uL (4.10-5.10); RED CELL DISTRI WIDTH 12.7 % (0-14.5); WHITE BLOOD COUNT 6.4 10*3/uL (4.8-10.8)
[2023-04-28 12:30] LABS: ACT PARTIAL THROMBO TIME 29.4 SECONDS (20.0-32.1)
[2023-04-28 12:41] LABS: ALKALINE PHOSPHATASE 82 U/L (46-116); BUN 13 mg/dl (9-23); CHLORIDE 107 mmol/L (98-107); SGPT/ALT 29 U/L (10-49); TOTAL PROTEIN 7.4 gm/dL (6.0-8.0)
[2023-04-28 13:34] VITALS: BP 99/66
== END 2023-04-28 15:03 | disposition home or self-care (01) ==
LOC: ED 11:44
PROVIDERS: Nurse Practitioner Family
DX: R07.89 Other chest pain (principal); F41.9 Anxiety disorder, unspecified; F32.A Depression, unspecified; R73.9 Hyperglycemia, unspecified; E83.41 Hypermagnesemia; Z90.89 Acquired absence of other organs; Z98.890 Other specified postprocedural states; Z90.49 Acquired absence of other specified parts of digestive tract

== ENCOUNTER 2023-06-14 17:23 | Emergency (ER) | payer OTHER ==
[~2023-06-14] VITALS: Ht 157.4 cm; Wt 77.6 kg
[2023-06-14 17:35] VITALS: BP 117/59
[2023-06-14 18:00] LABS: BASO # 0.1 10*3/uL (0.0-0.1); BASO % 1.1 % (0.0-1.0); EOS # 0.2 10*3/uL (0.0-0.4); EOS % 3.5 % (1.0-4.0); HEMATOCRIT 39.1 % (37.0-47.0); LYMPH # 2.2 10*3/uL (1.3-4.4); LYMPH % 40.6 % (27.0-41.0); MEAN CELL VOLUME 85.2 fl (81.0-99.0); MEAN CORPUSCULAR HGB 28.3 pg (27.0-31.0); MEAN CORPUSCULAR HGB CONC 33.2 g/dl (33.0-37.0); MEAN PLATELET VOLUME 10.5 fl (9.6-12.3); MONO # 0.5 10*3/uL (0.1-1.0); MONO % 8.4 % (3.0-9.0); NEUT # 2.5 10*3/uL (2.3-7.9); NEUT % 46.2 % (47.0-73.0); PLATELET COUNT AUTOMATED 265 10*3/uL (130-400); RED BLOOD COUNT 4.59 10*6/uL (4.10-5.10); RED CELL DISTRI WIDTH 12.8 % (0-14.5); WHITE BLOOD COUNT 5.4 10*3/uL (4.8-10.8)
[2023-06-14 18:21] LABS: ALKALINE PHOSPHATASE 85 U/L (46-116); BUN 12 mg/dl (9-23); CHLORIDE 109 mmol/L (98-107); SGPT/ALT 28 U/L (5-49); TOTAL PROTEIN 6.9 gm/dL (6.0-8.0)
== END 2023-06-14 21:21 | disposition home or self-care (01) ==
LOC: ED 17:23
PROVIDERS: Nurse Practitioner
DX: M54.50 Low back pain, unspecified (principal); N93.9 Abnormal uterine and vaginal bleeding, unspecified; F32.A Depression, unspecified; I95.9 Hypotension, unspecified; Z90.49 Acquired absence of other specified parts of digestive tract; Z90.89 Acquired absence of other organs; Z98.890 Other specified postprocedural states

== ENCOUNTER → 2023-08-13 | Outpatient (CLI) | payer OTHER | END | disposition home or self-care (01) | LOC: MRI 08-04 01:11 | PROVIDERS: ATTEND Internal Medicine | DX: M43.07 Spondylolysis, lumbosacral region (principal); M51.27 Other intervertebral disc displacement, lumbosacral region; M48.07 Spinal stenosis, lumbosacral region ==

== ENCOUNTER → 2023-09-04 | Emergency (ER) | payer OTHER ==
[~2023-09-04] VITALS: Ht 157.4 cm; Wt 77.6 kg
[~2023-09-04] MED LIST changes: +CIPRO500 MG PO; +IOHEXOL 300 MG/ML 100 ML VIAL IV ONE; +SODIUM CHLORIDE 0.9% 1,000 ML IV ONE
[2023-09-04 13:31] VITALS: BP 121/68
[2023-09-04 15:06] LABS: BILIRUBIN Negative (Negative); BLOOD 1+ (Negative); CLARITY Clear (Clear); COLOR Yellow (Yellow); GLUCOSE Negative (Negative); KETONE Negative (Negative); LEUKO ESTERASE Negative (Negative); NITRITE Negative (Negative); PH 5.5 (4.5-8.0); UROBILINOGEN 0.2 E.U./dl (0.0-1.0)
[2023-09-04 15:13] LABS: EOS # 0.2 10*3/uL (0.0-0.4); EOS % 4.7 % (1.0-4.0); HEMATOCRIT 39.3 % (37.0-47.0); LYMPH # 2.2 10*3/uL (1.3-4.4); LYMPH % 57.1 % (27.0-41.0); MEAN CELL VOLUME 85.8 fl (81.0-99.0); MEAN CORPUSCULAR HGB 27.1 pg (27.0-31.0); MEAN CORPUSCULAR HGB CONC 31.6 g/dl (33.0-37.0); MEAN PLATELET VOLUME 10.3 fl (9.6-12.3); MONO # 0.3 10*3/uL (0.1-1.0); MONO % 6.5 % (3.0-9.0); NEUT # 1.2 10*3/uL (2.3-7.9); NEUT % 30.7 % (47.0-73.0); PLATELET COUNT AUTOMATED 261 10*3/uL (130-400); RED BLOOD COUNT 4.58 10*6/uL (4.10-5.10); RED CELL DISTRI WIDTH 12.8 % (0-14.5); WHITE BLOOD COUNT 3.9 10*3/uL (4.8-10.8)
[2023-09-04 15:13] LABS: URINE AMPHETAMINES Negative (1000ng/ml); URINE BARBITURATES Negative (200ng/ml); URINE BENZODIAZEPINES Negative (200ng/ml); URINE CANNABINOIDS (THC) Negative (50ng/ml); URINE COCAINE Negative (300ng/ml); URINE METHADONE Negative (300ng/ml); URINE OPIATES Negative (300ng/ml); URINE PHENCYCLIDINE Negative (25ng/ml)
[2023-09-04 15:23] LABS: ACT PARTIAL THROMBO TIME 27.8 SECONDS (20.0-32.1)
[2023-09-04 15:24] LABS: BACTERIA 1+
[2023-09-04 15:25] LABS: WBC 0-2 wbc/hpf (0-5)
[2023-09-04 15:35] LABS: ALKALINE PHOSPHATASE 81 U/L (46-116); BUN 10 mg/dl (9-23); CHLORIDE 108 mmol/L (98-107); ETHYL ALCOHOL 3.5 mg/dl (<3); LIPASE 38 U/L (12-53); POTASSIUM 3.8 mmol/L (3.4-5.1); SGPT/ALT 66 U/L (5-49)
== END ==
LOC: ED 13:24
PROVIDERS: Internal Medicine
DX: N39.0 Urinary tract infection, site not specified (principal); Z79.899 Other long term (current) drug therapy; Z90.49 Acquired absence of other specified parts of digestive tract

== ENCOUNTER → 2023-09-14 | Outpatient (CLI) | payer OTHER ==
[~2023-09-14] MED LIST changes: -SODIUM CHLORIDE 0.9% 1,000 ML IV ONE
== END | disposition home or self-care (01) ==
LOC: CT 09:00
PROVIDERS: ATTEND Internal Medicine
DX: J98.59 Other diseases of mediastinum, not elsewhere classified (principal); R59.0 Localized enlarged lymph nodes; M47.814 Spondylosis without myelopathy or radiculopathy, thoracic region

== ENCOUNTER → 2023-09-23 | Outpatient (CLI) | payer OTHER ==
[~2023-09-23] MED LIST changes: -IOHEXOL 300 MG/ML 100 ML VIAL IV ONE
== END | disposition home or self-care (01) ==
LOC: MAMMO 08:29
PROVIDERS: ATTEND Internal Medicine
DX: N63.22 Unspecified lump in the left breast, upper inner quadrant (principal)

== ENCOUNTER 2023-11-12 11:10 | Emergency (ER) | payer OTHER ==
[~2023-11-12] VITALS: Ht 157.4 cm; Wt 79.4 kg
[2023-11-12 11:32] VITALS: BP 114/73
[2023-11-12] MEDS ORDERED: SODIUM CHLORIDE 0.9% 1,000 ML IV ONE (11:40)
[2023-11-12] MEDS ORDERED: Ondansetron Hydrochloride 4 MG/2 ML VIAL IV ONE (11:40)
[2023-11-12] MEDS ORDERED: Ketorolac Tromethamine 30 MG/ML VIAL IV ONE (11:45)
[2023-11-12 11:54] LABS: BASO # 0.1 10*3/uL (0.0-0.1); BASO % 1.2 % (0.0-1.0); EOS # 0.1 10*3/uL (0.0-0.4); EOS % 2.8 % (1.0-4.0); HEMATOCRIT 42.1 % (37.0-47.0); LYMPH # 2.1 10*3/uL (1.3-4.4); LYMPH % 49.1 % (27.0-41.0); MEAN CELL VOLUME 86.3 fl (81.0-99.0); MEAN CORPUSCULAR HGB 27.3 pg (27.0-31.0); MEAN CORPUSCULAR HGB CONC 31.6 g/dl (33.0-37.0); MEAN PLATELET VOLUME 10.7 fl (9.6-12.3); MONO # 0.4 10*3/uL (0.1-1.0); MONO % 9.8 % (3.0-9.0); NEUT # 1.6 10*3/uL (2.3-7.9); NEUT % 37.1 % (47.0-73.0); PLATELET COUNT AUTOMATED 264 10*3/uL (130-400); RED BLOOD COUNT 4.88 10*6/uL (4.10-5.10); RED CELL DISTRI WIDTH 12.7 % (0-14.5); WHITE BLOOD COUNT 4.3 10*3/uL (4.8-10.8)
[2023-11-12 12:15] LABS: ALKALINE PHOSPHATASE 73 U/L (46-116); BUN 14 mg/dl (9-23); CHLORIDE 106 mmol/L (98-107); LIPASE 51 U/L (12-53); POTASSIUM 4.3 mmol/L (3.4-5.1); SGPT/ALT 33 U/L (5-49); TOTAL PROTEIN 7.3 gm/dL (6.0-8.0)
[2023-11-12 14:10] LABS: BILIRUBIN Negative (Negative); BLOOD Negative (Negative); CLARITY Clear (Clear); COLOR Yellow (Yellow); GLUCOSE Negative (Negative); KETONE Negative (Negative); LEUKO ESTERASE Negative (Negative); NITRITE Negative (Negative); SPECIFIC GRAVITY 1.015 (1.001-1.030); UROBILINOGEN 0.2 E.U./dl (0.0-1.0)
[2023-11-12 14:20] LABS: EPITHELIAL CELLS 0-2; WBC 0-2 wbc/hpf (0-5)
== END 2023-11-12 14:55 | disposition home or self-care (01) ==
LOC: ED 11:10
PROVIDERS: Physician Assistant Medical
DX: R11.2 Nausea with vomiting, unspecified (principal); Z20.822 Contact with and (suspected) exposure to COVID-19; R10.9 Unspecified abdominal pain; F32.A Depression, unspecified; F41.9 Anxiety disorder, unspecified; K21.9 Gastro-esophageal reflux disease without esophagitis; Z90.89 Acquired absence of other organs; Z90.49 Acquired absence of other specified parts of digestive tract; Z98.890 Other specified postprocedural states

== ENCOUNTER → 2023-11-23 | Outpatient (CLI) | payer OTHER | END | disposition home or self-care (01) | LOC: CARD 11-18 08:30 | PROVIDERS: ATTEND Internal Medicine | DX: M17.11 Unilateral primary osteoarthritis, right knee (principal); R00.2 Palpitations; M25.461 Effusion, right knee ==

== ENCOUNTER → 2023-12-01 | Outpatient (CLI) | payer OTHER | END | disposition home or self-care (01) | LOC: CARD 13:40 | PROVIDERS: ATTEND Internal Medicine | DX: R00.2 Palpitations (principal) ==

== ENCOUNTER 2024-01-25 15:23 | Emergency (ER) | payer OTHER ==
[~2024-01-25] VITALS: Wt 77.6 kg
[2024-01-25 15:51] VITALS: BP 106/66
[2024-01-25] MEDS ORDERED: Acetaminophen/Oxycodone 5 MG/325 MG TABLET PO ONE (16:40)
[2024-01-25] MEDS ORDERED: MELOXICAM15 MG PO (18:11)
== END 2024-01-25 18:24 | disposition home or self-care (01) ==
LOC: ED 15:23
DX: M71.21 Synovial cyst of popliteal space [Baker], right knee (principal); Z90.49 Acquired absence of other specified parts of digestive tract; Z98.890 Other specified postprocedural states

== ENCOUNTER 2024-04-02 17:54 | Emergency (ER) | payer OTHER ==
[~2024-04-02] VITALS: Ht 157.4 cm; Wt 77.6 kg
[2024-04-02 18:17] VITALS: BP 148/88
== END 2024-04-02 20:05 | disposition home or self-care (01) ==
LOC: ED 17:54
DX: S93.402A Sprain of unspecified ligament of left ankle, initial encounter (principal); F32.A Depression, unspecified; Z90.89 Acquired absence of other organs; Z90.49 Acquired absence of other specified parts of digestive tract; Z98.890 Other specified postprocedural states; W22.8XXA Striking against or struck by other objects, initial encounter; Y93.02 Activity, running; Y92.007 Garden or yard of unspecified non-institutional (private) residence as the place of occurrence of the external cause; Y99.8 Other external cause status

== ENCOUNTER 2025-03-29 12:49 | Emergency (ER) | payer OTHER ==
[~2025-03-29] VITALS: Ht 157.4 cm; Wt 74.8 kg
[2025-03-29 13:11] VITALS: BP 126/83
[2025-03-29] MEDS ORDERED: Acetaminophen/Oxycodone 5 MG/325 MG TABLET PO ONE (14:45)
== END 2025-03-29 14:56 | disposition home or self-care (01) ==
LOC: ED 12:49
DX: S30.0XXA Contusion of lower back and pelvis, initial encounter (principal); S20.229A Contusion of unspecified back wall of thorax, initial encounter; M51.369 Other intervertebral disc degeneration, lumbar region without mention of lumbar back pain or lower extremity pain; F32.A Depression, unspecified; Z90.49 Acquired absence of other specified parts of digestive tract; Z98.890 Other specified postprocedural states; W50.1XXA Accidental kick by another person, initial encounter; Y93.89 Activity, other specified; Y92.89 Other specified places as the place of occurrence of the external cause; Y99.8 Other external cause status